=== PATIENT | female | born 1955 | race Caucasian/White ===

== ENCOUNTER → 2017-03-24 | Outpatient (CLI) | payer BC ==
--- NOTE | 2017-03-25 07:20 | MM ---
Reason for exam: screening (asymptomatic). Last mammogram was performed 1 year ago. History: Patient is postmenopausal. Family history of breast cancer in 2 sisters at age 60. Physical Findings: A clinical breast exam by your physician is recommended on an annual basis and results should be correlated with mammographic findings. MG 3D Screening Mammo W/Cad Bilateral CC and MLO view(s) were taken. Prior study comparison: March 25, 2016, bilateral MG 3d screening mammo w/cad. March 22, 2015, bilateral MG screening mammo w CAD. The breast tissue is heterogeneously dense. This may lower the sensitivity of mammography. No suspicious calcifications are seen. There is no discrete abnormality. No significant changes when compared with prior studies. ASSESSMENT: Benign, BI-RAD 2 RECOMMENDATION: Routine screening mammogram of both breasts in 1 year.
== END | disposition home or self-care (01) ==
LOC: RADMAMWWP 08:04
PROVIDERS: ATTEND Obstetrics & Gynecology
DX: Z12.31 Encounter for screening mammogram for malignant neoplasm of breast (principal); Z80.3 Family history of malignant neoplasm of breast
CPT/HCPCS: 77063; G0202

== ENCOUNTER → 2018-03-10 | Outpatient (CLI) | payer BC ==
--- NOTE | 2018-03-10 19:08 | BD ---
EXAMINATION TYPE: Axial Bone Density DATE OF EXAM: 03/10/2018 COMPARISON: 12/28/2014 CLINICAL HISTORY: 63-year-old female disorders of bone, postmenopausal screening Height: 63 IN Weight: 139 LBS FRAX RISK QUESTIONS: Family History (Parent hip fracture): YES MOTHER Secondary Osteoporosis: Current Tobacco Use: YES RISK FACTORS HISTORY OF: History of Wrist Fracture: YES LT WRIST When: AGE 17 Active: YES Diet low in dairy products/other sources of calcium: YES Postmenopausal woman: AGE 55 MEDICATIONS: Osteoporosis Medications: YES Which medication: EVISTA How Lon YEARS Additional Medications: CRESTOR, EVISTA EXAM MEASUREMENTS: Bone mineral densitometry was performed using the [employer] System. Bone mineral density as measured about the Lumbar spine is: ----- L1-L4(G/cm2): 1.079 T Score Values are as follows: ----- L2: -1.6 ----- L3: -1.2 ----- L4: 0.2 (L4 artifactually elevated from degenerative sclerosis. Will be excluded from measurem ent). ----- L1-L4: -0.8 ----- L1-L3: -1.3. Bone mineral density has: Increased 3.3% since study of: 12/28/2014 Bone mineral density about the R hip (g/cm2): 0.879 Bone mineral density about the L hip (g/cm2): 0.835 T Score values are as follows: -----R Neck: -1.1 -----L Neck: -1.5 -----R Total: -0.9 -----L Total: -1.2 Bone mineral density has: Decreased -3.2% since study of: 12/28/2014 IMPRESSION: Osteopenia (T Score between -2.5 and -1). There is slightly increased risk of fracture and the patient may be considered for treatment. Re-Screen 2-5 years. NOTE: T-SCORE=SD OF THE YOUNG ADULT MEAN.
--- NOTE | 2018-03-12 14:30 | MM ---
Reason for exam: screening (asymptomatic). Last mammogram was performed 1 year ago. History: Patient is postmenopausal. Family history of breast cancer in 2 sisters at age 60. Physical Findings: A clinical breast exam by your physician is recommended on an annual basis and results should be correlated with mammographic findings. MG 3D Screening Mammo W/Cad Bilateral CC and MLO view(s) were taken. Prior study comparison: March 24, 2017, bilateral MG 3d screening mammo w/cad. March 25, 2016, bilateral MG 3d screening mammo w/cad. The breast tissue is heterogeneously dense. This may lower the sensitivity of mammography. No significant changes when compared with prior studies. ASSESSMENT: Negative, BI-RAD 1 RECOMMENDATION: Routine screening mammogram of both breasts in 1 year.
== END | disposition home or self-care (01) ==
LOC: RADMAMWWP 08:41
PROVIDERS: ATTEND Family Medicine
DX: Z12.31 Encounter for screening mammogram for malignant neoplasm of breast (principal); M85.80 Other specified disorders of bone density and structure, unspecified site; Z80.3 Family history of malignant neoplasm of breast
CPT/HCPCS: 77063; 77067; 77080

== ENCOUNTER → 2019-01-03 | Outpatient (CLI) | payer OTHER ==
--- NOTE | 2019-01-03 12:45 | ECHOS ---
STRESS ECHOCARDIOGRAM INDICATIONS: Abnormal EKG. MEDICATIONS: Crestor, Evista. BASELINE HEART RATE: 77 BASELINE BLOOD PRESSURE: 125/71 MAXIMUM HEART RATE: 140 MAXIMUM BLOOD PRESSURE: 213/90 85% MPHR: 133 100% MPHR: 157 METS: 7.1 MAXIMUM STAGE REACHED: 2 TOTAL EXERCISE TIME: 5:15 CLINICAL INFORMATION: Patient was exercised for a total period of 5 minutes. A peak heart rate of 140, was achieved. Maximum blood pressure of 213/90 mmHg is noted. Resting EKG shows normal sinus rhythm with a normal NJ interval and QRS duration and normal ST-T waves. During exercise, J-point depression with upsloping ST segments are noted. The baseline echocardiographic images reveal normal left ventricular chamber size with normal left ventricular systolic function in the immediate postexercise period. Normal increase in the wall thickness and contractility is noted. FINAL IMPRESSION: 1. This stress echocardiographic study is negative for stress-induced ischemia. 2. EKG portion of the stress test is not suggestive of ischemia. 3. Patient's exercise tolerance is average. MMODL / IJN: [id number] /
== END | disposition home or self-care (01) ==
LOC: RADNMMAIN 10:23
PROVIDERS: ATTEND Family Medicine
DX: R94.31 Abnormal electrocardiogram [ECG] [EKG] (principal)
CPT/HCPCS: 93351

== ENCOUNTER 2019-01-05 06:50 | Day surgery (SDC) | payer OTHER ==
[2018-12-30 14:54] VITALS: BMI 25.4
[~2019-01-05 06:50] MED LIST: DEXAMETHASONE SOD PHOSPHATE 10 MG/ML 1 ML VIAL IV ONE; HYDROmorphone 0.5 MG/0.5 ML SYRINGE IVP PRN; LACTATED RINGERS 1,000 ML IV SCH; LIDOCAINE 1% 20 ML VIAL (10MG/ML) FOR IV START INTRADERMA PRN; MIDAZOLAM 2 MG/2 ML VIAL IV PRN; ONDANSETRON 4 MG/2 ML VIAL IVP ONE; SCOPOLAMINE 1.5MG/72HR PATCH TRANSDERM ONE; ceFAZolin IN SWFI 2 GM/20 ML SYRINGE IVP ONE
--- NOTE | 2019-01-05 08:16 | P.HPOR ---
History of Present Illness H&P Date: 01/05/19 The patient is very pleasant 63-year-old female was filled a long course of nonsurgical treatment for her right big toe. She presented to my office discussed surgical treatments. She comes in today for an elective Cartiva implant in her big toe. Past Medical History Past Medical History: Hyperlipidemia, Osteoarthritis (OA) History of Any Multi-Drug Resistant Organisms: None Reported Past Surgical History: Tonsillectomy Additional Past Surgical History / Comment(s): Bone spurs - feet, foot surgery by suzanne Vernon wrist surgery. Past Anesthesia/Blood Transfusion Reactions: No Reported Reaction Smoking Status: Former smoker - Past Family History Mother Family Medical History: Diabetes Mellitus Father Family Medical History: Cancer Additional Family Medical History / Comment(s): Colon. Medications and Allergies Home Medications Medication Instructions Recorded Confirmed Type Raloxifene [Evista] 60 mg PO HS 12/30/18 01/05/19 History Rosuvastatin [Crestor] 10 mg PO HS 12/30/18 01/05/19 History Aspirin 325 mg PO BID #28 tab 01/05/19 Rx HYDROcodone/APAP 5-325MG [[place] 1 - 2 tab PO Q6HR PRN #30 tab 01/05/19 Rx 5-325] Allergies Allergy/AdvReac Type Severity Reaction Status Date / Time codeine Allergy Nausea & Verified 12/30/18 14:33 Vomiting Physical Examination The patient is no apparent distress and is alert and oriented. She deficits nonlabored breathing. Her abdomen is nonobese. A focused examination of the right foot shows intact skin with no lesions over the first MTP joint. There is pain and crepitance with passive range of motion of the first MTP joint. There is a palpable dorsalis pedis and posterior tibial pulse. The tip of all the toes are warm and well perfused with brisk capillary refill. Assessment and Plan (1) Hallux rigidus of right foot Current Visit: Yes Status: Acute Code(s): M20.21 - HALLUX RIGIDUS, RIGHT FOOT SNOMED Code(s): 858407427 Plan: The patient has hallux rigidus which has failed nonsurgical treatment. She presents today for implant arthroplasty of the first MTP joint using Cartiva. I lengthy discussion with the patient in the office on the risks and benefits of surgery. Please see office history and physical for full details.
[2019-01-05] MEDS ORDERED: MIDAZOLAM 2 MG/2 ML VIAL ONE (08:24)
[2019-01-05] MEDS ORDERED: PROPOFOL 10 MG/ML 20 ML VIAL IV ONE (08:24)
[2019-01-05] MEDS ORDERED: ePHEDrine SULFATE/0.9% NACL/PF 50 MG/5 ML SYRINGE IV ONE (08:24)
[2019-01-05] MEDS ORDERED: LIDOCAINE 1% INJ 10MG/ML (20 ML MDV) ONE (08:24)
[2019-01-05] MEDS ORDERED: fentaNYL (PF) 50 MCG/ML 2 ML AMP ONE (08:24)
[2019-01-05] MEDS ORDERED: BUPIVACAINE (PF) 0.5% 30 ML VIAL SQ ONE (09:17)
[2019-01-05 09:55] VITALS: RESP 16; TEMP 97.2
--- NOTE | 2019-01-05 09:55 | P.OP ---
Date of Procedure: 01/05/19 Preoperative Diagnosis: Right hallux rigidus Postoperative Diagnosis: Same Procedure(s) Performed: Right first MTP implant arthroplasty and dorsal cheilectomy Anesthesia: ANSELMO Surgeon: Cristiano Romero Estimated Blood Loss (ml): 5 IV fluids (ml): 500 Pathology: none sent Condition: stable Disposition: PACU Indications for Procedure: The patient is a very pleasant previously healthy 63-year-old female with a long-standing history of problems with her right first MTP joint. She had moderate arthritis and large dorsal spur. She failed a long course of nonsurgical treatment and came to my office requesting surgery. We discussed different surgical options including an isolated cheilectomy, fusion, and implant arthroplasty. The patient requested implant arthroplasty using Cartiva. I reviewed the orthopedic literature with her discussing that five-year outcome data shows comparable rates the patient's satisfaction and survival of the implant compared to fusion, but long-term data is lacking. We discussed potential risks and complication of surgery including but not limited to risk of anesthesia, superficial infection, deep infection, delayed wound healing, superficial wound necrosis, deep wound necrosis, damage to local blood vessels or nerves, intraoperative fracture, postoperative fracture, stiffness of the joint, continued or worsened pain, DVT, PE, other medical complications, generalized to satisfaction with surgery, need for further surgery including conversion to a fusion and possibly loss of life or limb. The patient voiced understanding of these potential risks and also acknowledged that other less common complications are possible. She provided her verbal and written consent to go forward with surgery. Description of Procedure: The patient was identified in preoperative holding and the correct right leg was marked with my initials. I reviewed the consent form with the patient and her . All their questions were answered. The patient was then brought back to the operating room by anesthesia. She was positioned on the OR table where general anesthetic and preoperative antibiotics were given. The tourniquet was applied to the proximal aspect of the right leg. All bony prominences were well-padded. The right leg was then prepped and draped in the standard sterile fashion. A timeout was performed identifying the correct patient, operative extremity, and procedure. The patient's leg was then elevated, exsanguinated with an Esmarch bandage, and the tourniquet was inflated to 250 mmHg. I began by making a standard dorsal incision centered over the first MTP joint. Skin incision with a scalpel and dissection was carried down carefully to the subcutaneous tissue. The EHL tendon sheath was incised and the tendon was retracted laterally. A longitudinal capsulotomy was performed exposing the first MTP joint. On inspection there was a loose body within the joint which was removed, the synovium was inflamed, there was a large dorsal osteophyte off the first metatarsal, there is full-thickness cartilage loss over the dorsal half of the first metatarsal head. The joint was circumferentially exposed to allow unimpeded access to the metatarsal head. A careful cheilectomy was performed using a small saw and the joint was contoured. The 10 mm sizer was placed centrally in the first metatarsal head and appeared to have adequate bony coverage. A K wire was placed through the cannulated slot of the sizer. The reamer was then used to create a cavity for the Cartiva implant. Rather than taking the reamer flush to the stop guard I elected to leave it an additional 2 mm proud to prevent subsidence. The reamer and K wire were removed. On inspection of the bony vault there was adequate bony coverage with good bone stock. A 10 mm Cartiva the implant was dispensed and gently press-fit into the bony cavity. The final implant sat 3-4 mm proud. The wound was thoroughly irrigated. The capsule was closed with a running 3-0 Monocryl. The subcutane ous layer was closed with interrupted 3-0 Monocryl. The skin was closed with interrupted 3-0 nylon horizontal mattress stitches. A final fluoroscopic view was taken. The tourniquet was let down. A sterile dressing consisting of Betadine soaked Adaptic, 4 x 4, and web roll was applied. The patient was awoken from her anesthetic, transferred to a [place], and brought to recovery entire procedure well
--- NOTE | 2019-01-05 10:04 | FL ---
EXAMINATION TYPE: FL guidance operating room DATE OF EXAM: 01/05/2019 CLINICAL HISTORY: First metatarsal implant on the right. Fluoroscopic documentation TECHNIQUE: Fluoroscopy. COMPARISON: None. FINDINGS: Fluoroscopic guidance was provided during procedure performed by Dr. Romero. A total of 1 seconds of fluoroscopic time was utilized during the procedure and 1 spot images was acquired. IMPRESSION: As Above.
[2019-01-05 10:36] VITALS: BP 142/80; PULSE 95
== END 2019-01-05 11:02 | disposition home or self-care (01) ==
LOC: OR 06:50
PROVIDERS: ATTEND Orthopaedic Surgery
DX: M20.21 Hallux rigidus, right foot (principal); M19.071 Primary osteoarthritis, right ankle and foot; I10 Essential (primary) hypertension; E78.5 Hyperlipidemia, unspecified; Z87.891 Personal history of nicotine dependence; Z97.3 Presence of spectacles and contact lenses; Z79.82 Long term (current) use of aspirin; Z79.891 Long term (current) use of opiate analgesic; Z79.899 Other long term (current) drug therapy; Z88.5 Allergy status to narcotic agent; Z83.3 Family history of diabetes mellitus; Z80.0 Family history of malignant neoplasm of digestive organs
CPT/HCPCS: 28291; 73660; C1713; J2250; J1100; J2405; J2001; J3010; J2704; J0690

== ENCOUNTER → 2019-03-24 | Outpatient (CLI) | payer OTHER ==
--- NOTE | 2019-03-25 11:33 | MM ---
Reason for exam: screening (asymptomatic). Last mammogram was performed 1 year ago. History: Patient is postmenopausal. Family history of breast cancer in 2 sisters at age 60. Physical Findings: A clinical breast exam by your physician is recommended on an annual basis and results should be correlated with mammographic findings. MG 3D Screening Mammo W/Cad Bilateral CC and MLO view(s) were taken. Prior study comparison: March 10, 2018, bilateral MG 3d screening mammo w/cad. March 24, 2017, bilateral MG 3d screening mammo w/cad. The breast tissue is heterogeneously dense. This may lower the sensitivity of mammography. Stable benign calcifications in the left breast. There is no discrete abnormality. No significant changes when compared with prior studies. ASSESSMENT: Benign, BI-RAD 2 RECOMMENDATION: Routine screening mammogram of both breasts in 1 year.
== END | disposition home or self-care (01) ==
LOC: RADMAMWWP 08:29
PROVIDERS: ATTEND Obstetrics & Gynecology
DX: Z08 Encounter for follow-up examination after completed treatment for malignant neoplasm (principal); Z80.3 Family history of malignant neoplasm of breast
CPT/HCPCS: 77063; 77067

== ENCOUNTER 2020-03-13 10:02 | Day surgery (SDC) | payer MEDICARE ==
[2020-03-09 08:36] VITALS: BMI 26.2
[~2020-03-13 10:02] MED LIST changes: -DEXAMETHASONE SOD PHOSPHATE 10 MG/ML 1 ML VIAL IV ONE; -HYDROmorphone 0.5 MG/0.5 ML SYRINGE IVP PRN; +LIDOCAINE 1% (10MG/ML) FOR IV START INTRADERMA PRN; -LIDOCAINE 1% 20 ML VIAL (10MG/ML) FOR IV START INTRADERMA PRN; -MIDAZOLAM 2 MG/2 ML VIAL IV PRN; -ONDANSETRON 4 MG/2 ML VIAL IVP ONE; -SCOPOLAMINE 1.5MG/72HR PATCH TRANSDERM ONE; -ceFAZolin IN SWFI 2 GM/20 ML SYRINGE IVP ONE
[2020-03-13 10:19] VITALS: RESP 16; TEMP 96.5
[2020-03-13] MEDS ORDERED: ONDANSETRON 4 MG/2 ML VIAL ONE (10:32)
[2020-03-13] MEDS ORDERED: ONDANSETRON 4 MG/2 ML VIAL IVP ONE (10:34)
[2020-03-13] MEDS ORDERED: LIDOCAINE 1% INJ 10MG/ML (20 ML MDV) ONE (11:27)
[2020-03-13] MEDS ORDERED: PROPOFOL 10 MG/ML 20 ML VIAL IV ONE (11:27)
--- NOTE | 2020-03-13 12:00 | P.PCN ---
Date of Procedure: 03/13/20 Description of Procedure: BRIEF HISTORY: Patient is a 65-year-old female presenting for outpatient colonoscopy for screening for malignant neoplasm of the colon. Patient reports multiple colonoscopies in the past. Patient has a strong family history of colon cancer in her sister and father. Last colonoscopy 5 years ago. PROCEDURE PERFORMED: Colonoscopy with polypectomy. PREOPERATIVE DIAGNOSIS: Screening for malignant neoplasm colon, last colonoscopy 5 years ago, patient reports family history of colon cancer in her sister and father. ESTIMATED BLOOD LOSS: Minimal. IV sedation per Anesthesia. PROCEDURE: After informed consent was obtained, the patient, was brought into the endoscopy unit. IV sedation was administered by Anesthesia under continuous monitoring. Digital rectal examination was normal. Initially the Olympus CF-190 flexible video colonoscope was then inserted in the rectum, gradually advanced into the cecum without any difficulty. Careful examination was performed as the scope was gradually being withdrawn. Ileocecal valve and the appendiceal orifice were v isualized and appeared normal. Prep was excellent. Mucosa of the cecum, ascending colon, transverse colon, descending colon, sigmoid colon, and rectum appeared normal. Diminutive colon polyps measuring 2-3 mm removed with cold forcep polypectomy from the cecum, ascending colon, hepatic flexure and transverse colon. Flat 12 mm transverse colon polyp removed with cold snare polypectomy. Retroflexion was performed in the rectum and no lesions were seen. The patient tolerated the procedure well. IMPRESSION: 4 diminutive polyps removed with cold forcep polypectomy from the cecum, ascending colon, hepatic flexure and transverse colon. Large flat transverse colon polyp removed with cold snare polypectomy. RECOMMENDATIONS: Findings of this examination were discussed with the patient and her . Okay to resume diet. Okay to resume medications. Await pathology from polypectomies. Would recommend repeat colonoscopy in 3 years for high risk colon polyps.
[2020-03-13 12:04] VITALS: BP 136/81
[2020-03-13 12:17] VITALS: PULSE 77
== END 2020-03-13 12:41 | disposition home or self-care (01) ==
LOC: ORWHC2ENDO 10:02
PROVIDERS: ATTEND Internal Medicine
DX: Z12.11 Encounter for screening for malignant neoplasm of colon (principal); D12.2 Benign neoplasm of ascending colon; D12.0 Benign neoplasm of cecum; D12.3 Benign neoplasm of transverse colon; E78.5 Hyperlipidemia, unspecified; Z80.0 Family history of malignant neoplasm of digestive organs; Z87.891 Personal history of nicotine dependence; Z88.5 Allergy status to narcotic agent; Z79.899 Other long term (current) drug therapy; Z98.890 Other specified postprocedural states; Z91.89 Other specified personal risk factors, not elsewhere classified
CPT/HCPCS: 88305; 45380; 45385; J2405; J2001; J2704

== ENCOUNTER → 2021-03-29 | Outpatient (CLI) | payer MEDICARE ==
--- NOTE | 2021-03-29 13:57 | BD ---
EXAMINATION TYPE: Axial Bone Density DATE OF EXAM: 03/29/2021 COMPARISON: NONE CLINICAL HISTORY: Height: 5 FT 3 IN Weight: 144 FRAX RISK QUESTIONS: Alcohol (3 or more units per day): NO Family History (Parent hip fracture): YES Glucocorticoids (More than 3mos): NO (Ex: prednisone, prednisolone, methylprednisolone, dexamethasone, and hydrocortisone). History of Fracture in Adulthood: NO Secondary Osteoporosis: 1. Type 1 Diabetes: NO 2. Hyperthyroidism: NO 3. Menopause before 45: NO 4. Malnutrition: NO 5. Chronic liver disease: NO Rheumatoid Arthritis: NO Current Tobacco Use: YES RISK FACTORS HISTORY OF: History of Wrist Fracture: YES When: AGE 17 Surgery to Spine/Hip(right/left)/Wrist (right/left): NO Family History of Osteoporosis: NO Active: YES Diet low in dairy products/other sources of calcium: NO Postmenopausal woman: AGE 55 Take estrogen and/or progesterone medications: NO Lost more than 2 inches in height since high school: NO MEDICATIONS: Additional Medications: CRESTOR,LISINOPRIL, Additional History: EXAM MEASUREMENTS: Bone mineral densitometry was performed using the [employer] System. Bone mineral density as measured about the Lumbar spine is: ----- L1-L4(G/cm2): 1.030 T Score Values are as follows: ----- L2: -2.3 ----- L3: -1.7 ----- L4: 0.1 ----- L1-L4: -1.3 Bone mineral density has: DECREASED -4.4 % since study of: 2017 Bone mineral density about the R hip (g/cm2): 0.835 Bone mineral density about the L hip (g/cm2): 0.815 T Score values are as follows: -----R Neck: -1.5 -----L Neck: -1.6 -----R Total: -1.1 -----L Total: -1.5 Bone mineral density has: DECREASED -3.2 % since study of: 2018 IMPRESSION: Osteopenia NOTE: T-SCORE=SD OF THE YOUNG ADULT MEAN.
== END | disposition home or self-care (01) ==
LOC: RADBDWWP 08:31
PROVIDERS: ATTEND Family Medicine
DX: M85.89 Other specified disorders of bone density and structure, multiple sites (principal)
CPT/HCPCS: 77080

== ENCOUNTER → 2021-04-05 | Outpatient (CLI) | payer MEDICARE ==
--- NOTE | 2021-04-09 10:17 | MM ---
Reason for exam: screening (asymptomatic). Last mammogram was performed 1 year ago. History: Patient is postmenopausal. Family history of breast cancer in 2 sisters at age 60. Took hormonal contraceptives for 3 years. Physical Findings: A clinical breast exam by your physician is recommended on an annual basis and results should be correlated with mammographic findings. MG 3D Screening Mammo W/Cad Bilateral CC and MLO view(s) were taken. Prior study comparison: March 28, 2020, bilateral MG 3d screening mammo w/cad. March 24, 2019, bilateral MG 3d screening mammo w/cad. March 10, 2018, bilateral MG 3d screening mammo w/cad. There are scattered fibroglandular densities. Slowly increasing benign dystrophic calcifications anterior left breast. No significant changes when compared with prior studies. ASSESSMENT: Benign, BI-RAD 2 RECOMMENDATION: Routine screening mammogram of both breasts in 1 year.
== END | disposition home or self-care (01) ==
LOC: RADMAMWWP 15:30
PROVIDERS: ATTEND Family Medicine
DX: Z12.31 Encounter for screening mammogram for malignant neoplasm of breast (principal); Z80.3 Family history of malignant neoplasm of breast
CPT/HCPCS: 77063; 77067

== ENCOUNTER → 2022-04-07 | Outpatient (CLI) | payer MEDICARE ==
--- NOTE | 2022-04-07 11:04 | MM ---
Reason for Exam: Screening (asymptomatic). Last screening mammogram was performed 12 month(s) ago. Patient History: Menarche at age 12. First Full-Term at age 24. Postmenopausal. Patient used Hormonal Contraceptives for 3 years. Sister had breast cancer, age 60. Sister had breast cancer, age 60. Risk Values: Cherrie 5 year model risk: 6.8%. NCI Lifetime model risk: 21.6%. Prior Study Comparison: 03/24/2019 Bilateral Screening Mammogram, [facility]. 03/28/2020 Bilateral Screening Mammogram, [facility]. 04/05/2021 Bilateral Screening Mammogram, [facility]. Tissue Density: The breast tissue is heterogeneously dense. This may lower the sensitivity of mammography. Findings: Analyzed By CAD. There is occasional scattered benign appearing round calcification throughout the bilateral breasts. There is no suspicious group of microcalcifications or new suspicious mass in either breast. Overall Assessment: Benign, BI-RAD 2 Management: Screening Mammogram of both breasts in 1 year. A clinical breast exam by your physician is recommended on an annual basis and results should be correlated with mammographic findings. Electronically signed and approved by: Loc Watts M.D.
== END | disposition home or self-care (01) ==
LOC: RADMAMWWP 08:09
PROVIDERS: ATTEND Family Medicine
DX: Z12.39 Encounter for other screening for malignant neoplasm of breast (principal); Z78.0 Asymptomatic menopausal state; Z80.3 Family history of malignant neoplasm of breast
CPT/HCPCS: 77063; 77067

== ENCOUNTER → 2023-04-16 | Outpatient (CLI) | payer MEDICARE ==
--- NOTE | 2023-04-17 11:28 | MM ---
Reason for Exam: Screening (asymptomatic). Last screening mammogram was performed 12 month(s) ago. Patient History: Menarche at age 12. First Full-Term at age 24. Postmenopausal. Patient used Hormonal Contraceptives for 3 years. Sister had breast cancer, age 60. Sister had breast cancer, age 60. Risk Values: Cherrie 5 year model risk: 6.9%. NCI Lifetime model risk: 20.8%. Prior Study Comparison: 03/28/2020 Bilateral Screening Mammogram, [facility]. 04/05/2021 Bilateral Screening Mammogram, [facility]. 04/07/2022 Bilateral MG 3D screening mammo w/cad, [facility]. Tissue Density: The breast tissue is heterogeneously dense. This may lower the sensitivity of mammography. Findings: Analyzed By CAD. There is no suspicious group of microcalcifications or new suspicious mass in either breast. Overall Assessment: Benign, BI-RAD 2 Management: Screening Mammogram of both breasts in 1 year. . Patient should continue monthly self-breast exams. A clinical breast exam by your physician is recommended on an annual basis. This exam should not preclude additional follow-up of suspicious palpable abnormalities. Note on Cherrie scores and lifetime risk: 1. A Cherrie score greater than 3% is considered moderate risk. If this is the case, consider specialist referral to assess eligibility for a risk reducing agent. 2. If overall lifetime risk for the development of breast cancer is 20% or higher, the patient may qualify for future screening with alternating mammogram and breast MRI. Electronically signed and approved by: Neal Guo M.D. Radiologis
== END | disposition home or self-care (01) ==
LOC: RADMAMWWP 13:10
PROVIDERS: ATTEND Family Medicine
DX: Z12.31 Encounter for screening mammogram for malignant neoplasm of breast (principal); Z78.0 Asymptomatic menopausal state; Z80.3 Family history of malignant neoplasm of breast
CPT/HCPCS: 77063; 77067

== ENCOUNTER → 2024-04-18 | Outpatient (CLI) | payer MEDICARE ==
--- NOTE | 2024-04-19 09:03 | MM ---
Reason for Exam: Screening (asymptomatic). Last screening mammogram was performed 12 month(s) ago. Patient History: Menarche at age 12. First Full-Term at age 24. Postmenopausal. Patient used Hormonal Contraceptives for 3 years. Sister had breast cancer, age 60. Sister had breast cancer, age 60. Risk Values: Cherrie 5 year model risk: 6.9%. NCI Lifetime model risk: 20.0%. Prior Study Comparison: 04/05/2021 Bilateral Screening Mammogram, [facility]. 04/07/2022 Bilateral MG 3D screening mammo w/cad, [facility]. 04/16/2023 Bilateral MG 3D screening mammo w/cad, [facility]. Tissue Density: There are scattered areas of fibroglandular density. Findings: Analyzed By CAD. Right breast: There is no suspicious group of microcalcifications or new suspicious mass. Benign-appearing calcifications right breast. Left breast: There is no suspicious group of microcalcifications or new suspicious mass. Benign-appearing calcifications left breast. Overall Assessment: Benign, BI-RAD 2 Management: Screening Mammogram of both breasts in [address] [facility] will attempt to contact patient to return for supplemental views and ultrasound if indicated. Patient should continue monthly self-breast exams. A clinical breast exam by your physician is recommended on an annual basis. This exam should not preclude additional follow-up of suspicious palpable abnormalities. Note on Cherrie scores and lifetime risk: 1. A Cherrie score greater than 3% is considered moderate risk. If this is the case, consider specialist referral to assess eligibility for a risk reducing agent. 2. If overall lifetime risk for the development of breast cancer is 20% or higher, the patient may qualify for future screening with alternating mammogram and breast MRI. [facility], , 04/19/2024 9:00 AM. Electronically signed and approved by: Job Mitchell DO
== END ==
LOC: RADMAMWWP 09:15
PROVIDERS: ATTEND Family Medicine
CPT/HCPCS: 77063; 77067